=== PATIENT | female | born 1955 ===

== ENCOUNTER 2019-02-01 07:00 | Day surgery (SDC) | payer OTHER ==
[~2019-02-01 07:00] MED LIST: ALTACE10 MG PO; CHILDREN'S ASPI81 MG PO; LEVOTHYROXINE25 MCG PO; RESTORIL30 M1 PO; SIMVASTATIN5 MG PO
[2019-02-01] MEDS ORDERED: MACROBID 100 M100 MG PO (11:12)
[2019-02-01] MEDS ORDERED: ULTRACET PO (11:13)
== END 2019-02-01 14:45 | disposition home or self-care (01) ==
LOC: CIR.AMB 07:00
DX: N39.3 Stress incontinence (female) (male) (principal)
CPT/HCPCS: 57288; C1771